=== PATIENT | male | born 1945 | race Caucasian/White ===

== ENCOUNTER → 2023-07-21 12:27 | Outpatient (CLI) | payer OTHER, SELFPAY ==
--- NOTE | 2023-07-21 12:31 | DI.RAD.S_ITS ---
PROCEDURE: FL BARIUM SWALLOW INDICATIONS: Other dysphagia COMPARISON: None. FINDINGS: Function: There is normal esophageal peristalsis. No elicited gastroesophageal reflux. Morphology: Air-contrast images demonstrate normal mucosal morphology. Single contrast views show no esophageal strictures, extrinsic mass effects, or diverticula. Limited images of the stomach demonstrate normal appearance. Fluoroscopy time: 2.2 minutes, 0 exposures (Only fluoroscopic saves were performed for purposes of ALARA) IMPRESSION: Unremarkable barium swallow. Note: If strong clinical suspicion remains, then endoscopy may provide additional diagnostic benefit Dictated by: Abhishek Bland M.D. on 07/22/2023 at 13:15 Approved by: Abhishek Bland M.D. on 07/22/2023 at 13:24
== END ==
PROVIDERS: Referring Provider Nurse Practitioner Family; Visit Provider Nurse Practitioner Family
DX: R13.19 Other dysphagia (principal)
CPT/HCPCS: 74220